=== PATIENT | female | born 1940 | race Caucasian/White ===

== ENCOUNTER 2017-10-12 18:31 | Inpatient (IN) | payer OTHER ==
--- OUTSIDE RECORDS SUMMARY | 2017-10-12 18:34 | XMS REPORT | Clinical Summary ---
:1940 Author Organization [facility] Address [address] [place] [address] Care Team Providers Name Role Phone Vladimir Parikh MD Primary Care Provider Allergies Active Allergy Reactions Severity Noted Date Comments Inrnmqq-Gaf-Keu Reductase Inhibitors High 04/08/2017 Extreme joint pain Current Medications Prescription Sig. Disp. Refills Start Date End Date Status verapamil sustained Take 180 mg by Active release (CALAN-SR) 180 MG mouth 3 (three) SR tablet times a day. ezetimibe (ZETIA) 10 mg Take 10 mg by mouth Active tablet daily. metFORMIN (GLUCOPHAGE) Take 500 mg by Active 500 mg tablet mouth 2 (two) times a day with meals. rosuvastatin (CRESTOR) 10 Take 10 mg by mouth Active MG tablet daily. donepezil (ARICEPT) 10 MG Take 10 mg by mouth Active tablet nightly. triamcinolone-dimethicone Apply topically. Active 0.1-5 % kit,ointment and cream albuterol (PROAIR Inhale 2 puffs Active HFA,PROVENTIL every 6 (six) hours HFA,VENTOLIN HFA) 90 as needed for mcg/actuation inhaler wheezing. benzonatate (TESSALON) Take 200 mg by Active 100 MG capsule mouth 3 (three) times a day as needed for cough. aspirin (ECOTRIN) 81 MG Take 81 mg by mouth Active enteric coated tablet daily. DOCUSATE CALCIUM ORAL Take by mouth. Active Active Problems Problem Noted Date Psoriasis 04/11/2017 SSS (sick sinus syndrome) 04/11/2017 Hyperlipidemia 04/11/2017 Hypertension 04/11/2017 Arthritis 04/08/2017 Sacroiliac dysfunction 04/08/2017 Encounters Date Type Specialty Care Team Description 04/08/2017 Hospital Encounter Radiology Bernie Hanley MD Sacroiliac dysfunction 04/08/2017 Hospital Encounter Radiology Bernie Hanley MD Arthritis 04/08/2017 Hospital Encounter Radiology Bernie Hanley MD Arthritis 04/08/2017 Office Visit Rheumatology Bernie Hanley MD Arthritis (Primary Dx); Sacroiliac dysfunction; Psoriasis after 10/11/2016 Family History Medical History Relation Name Comments ALS Brother Heart disease Father Osteoarthritis Father Alzheimer's disease Mother Heart disease Sister Hypertension Sister Relation Name Status Comments Brother Father aortic valve replacement Mother urosepsis. Pacemaker, strokes, heart disease. Sister Alive Son Don Melton Alive Common variable immunodeficiency Social History Tobacco Use Types Packs/Day Years Used Date Former Smoker Cigarettes Smokeless Tobacco: Never Used Comments: 2-3 years occasionally in college Alcohol Use Drinks/Week oz/Week Comments Yes 1 Standard drinks or equivalent 0.6 rarely Sex Assigned at Date Recorded Not on file Last Filed Vital Signs Vital Sign Reading Time Taken Blood Pressure 129/90 04/08/2017 10:05 AM [employer] Pulse 64 04/08/2017 10:05 AM [employer] Temperature - - Respiratory Rate - - Oxygen Saturation - - Inhaled Oxygen Concentration - - Weight 97.5 kg (215 lb) 04/08/2017 10:05 AM [employer] Height 167 cm (5' 5.75") 04/08/2017 10:05 AM [employer]ATE [employer]NALY[employer] Body Mass Index 34.97 04/08/2017 10:05 AM [employer]IATE [employer]NALYST Plan of Treatment Health Maintenance Due Date Last Done Comments SHINGRIX VACCINE (#1) 08/29/1991 ZOSTER VACCINE 2001 PNEUMOCOCCAL POLYSACCHARIDE VACCINE AGE 65 AND OVER 2006 PNEUMOCOCCAL-13 2006 INFLUENZA VACCINE 10/06/2017 Procedures Procedure Name Priority Date/Time Associated Diagnosis Comments XR KNEE 1 OR 2 VW Routine 04/08/2017 12:04 Arthritis Results for this LEFT PM [employer] procedure are in the results section. XR KNEE AP STANDING Routine 04/08/2017 12:04 Arthritis Results for this BILATERAL PM [employer] procedure are in the results section. XR SACROILIAC JOINTS Routine 04/08/2017 12:04 Sacroiliac Results for this 3+ VW PM [employer] dysfunction procedure are in the results section. after 10/11/2016 Results XR Knee 1 Or 2 Vw Left (04/08/2017 12:04 PM) Narrative Performed At EXAMINATION:XR KNEE 1 OR 2 VW LEFT [facility] CLINICAL HISTORY:M19.90 Unspecified osteoarthritisunspecified site, Knee pain.Will not extend.MLI COMPARISON:None. IMPRESSION: Mild medial greater than lateral compartment narrowing. Small suprapatellar osteophyte. Possible small joint effusion. No fracture or dislocation. Normal bone mineralization. Gastric calcifications in the popliteal fossa. [facility]-[id number] Procedure Note Interface, Radiology Results Incoming - 04/08/2017 1:15 PM [employer]ATE FIN[employer]CIAL ANALYST EXAMINATION: XR KNEE 1 OR 2 VW LEFT CLINICAL HISTORY: M19.90 Unspecified osteoarthritis unspecified site, Knee pain. Will not extend. MLI COMPARISON: None. IMPRESSION: Mild medial greater than lateral compartment narrowing. Small suprapatellar osteophyte. Possible small joint effusion. No fracture or dislocation. Normal bone mineralization. Gastric calcifications in the popliteal fossa. [facility]-[id number] Performing Organization Address [facility] Phone Number [facility] [address] [place] [address] XR Knee Ap Standing Bilateral (04/08/2017 12:04 PM) Narrative Performed At XR KNEE AP STANDING BILATERAL [facility] CLINICAL INDICATION:M19.90 Unspecified osteoarthritisunspecified site, knee pain COMPARISON:None. IMPRESSION: Standing views of the knees demonstrate no significant varus or valgus deformity. Joint spaces are maintained. There are no significant arthritic findings in either knee. There is relative elevation of the medial left tibial plateau from the right by 2 mm. Soft tissues are unremarkable. Thank you for allowing us to participate in the care of your patient [id number] Procedure Note Interface, Radiology Results Incoming - 04/08/2017 1:59 PM ASSOCIATE FIN[employer]CIAL ANALYST XR KNEE AP STANDING BILATERAL CLINICAL INDICATION: M19.90 Unspecified osteoarthritis unspecified site, knee pain COMPARISON: None. IMPRESSION: Standing views of the knees demonstrate no significant varus or valgus deformity. Joint spaces are maintained. There are no significant arthritic findings in either knee. There is relative elevation of the medial left tibial plateau from the right by 2 mm. Soft tissues are unremarkable. Thank you for allowing us to participate in the care of your patient [id number] Performing Organization Address [facility]/Zipcode Phone Number [facility] [address] [place] [address] XR Sacroiliac Joints 3+ Vw (04/08/2017 12:04 PM) Narrative Performed At EXAMINATION:XR SACROILIAC JOINTS 3VW [facility] 3 views CLINICAL HISTORY:M53.3 Sacrococcygeal disordersnot elsewhere classified, bilataral SI pain.history of psoriasis COMPARISON:None. FINDINGS: 1. There are mild degenerative changes in the sacroiliac bilaterally. There is no joint space erosion or joint space fusion. 2.There is no gross evidence of fracture although the possibility of sacral fracture cannot be excluded on the basis of this examination. 3.There is marked disc space narrowing, spondylosis and degenerative change in the discs at L4-5 and L5-S1. 4.There are surgical clips projected in the midline pelvis. 5.There is what appears to be a port for a lap band projected over the lower abdomen on the right posterior oblique view. IMPRESSION: Degenerative changes in the sacroiliac joints and lower lumbar spine. [id number] Procedure Note Interface, Radiology Results Incoming - 04/08/2017 12:31 PM ASSOCIATE FINANCIAL ANALYST EXAMINATION: XR SACROILIAC JOINTS 3 VW 3 views CLINICAL HISTORY: M53.3 Sacrococcygeal disorders not elsewhere classified, bilataral SI pain. history of psoriasis COMPARISON: None. FINDINGS: 1. There are mild degenerative changes in the sacroiliac bilaterally. There is no joint space erosion or joint space fusion. 2. There is no gross evidence of fracture although the possibility of sacral fracture cannot be excluded on the basis of this examination. 3. There is marked disc space narrowing, spondylosis and degenerative change in the discs at L4-5 and L5-S1. 4. There are surgical clips projected in the midline pelvis. 5. There is what appears to be a port for a lap band projected over the lower abdomen on the right posterior oblique view. IMPRESSION: Degenerative changes in the sacroiliac joints and lower lumbar spine. [id number] Performing Organization Address City/State/Zipcode Phone Number [facility] [address] [place] [address] after 10/11/2016 Insurance Payer Benefit Plan / Group Subscriber ID Type Phone Address [employer] MED[employer]ARE [employer] MEDICARE PPO/PFFS/[facility] xxxxxxxxx PPO Home: [facility] [phone] [place] [id number]
[2017-10-12 19:08] LABS: Absolute Lymphocytes (CBC) 2.4 K/uL (0.7-4.9); Absolute Monocytes 0.7 K/uL (0.1-1.3); Basophils % 1.2 % (0-1.3); Eosinophils % 2.4 % (0-4.4); MCV 93.5 fL (80-100); MPV 10.3 fL (7.6-11.3); Monocytes % 10.5 % (3.3-12.3); RBC Red Blood Cell Count 4.38 M/uL (3.86-4.86)
--- NOTE | 2017-10-12 19:26 | RAD REPORT ---
EXAM DESCRIPTION: [facility] Single View10/12/2017 7:17 pm CLINICAL HISTORY: Shortness of breath COMPARISON: None FINDINGS: The lungs appear clear of acute infiltrate. The heart is borderline enlarged. Pacemaker l mily are present. One of the leads is disconnected from the battery pack IMPRESSION: No acute abnormalities displayed
[2017-10-12 19:27] LABS: Albumin 3.6 g/dL (3.4-5.0); Bilirubin Direct 0.1 mg/dL (0-0.2); Bilirubin Total 0.3 mg/dL (0.2-1.0); Magnesium 2.5 mg/dL (1.8-2.4); Potassium 3.9 mmol/L (3.5-5.1)
--- NOTE | 2017-10-12 19:42 | RAD REPORT ---
EXAM DESCRIPTION: CT - Head Brain Wo Cont - 10/12/2017 7:10 pm CLINICAL HISTORY: Left-sided numbness/weakness COMPARISON: None. TECHNIQUE: Computed axial tomography of the head was obtained. IV contrast was not requested. All CT scans are performed using dose optimization technique as appropriate and may include automated exposure control or mA/KV adjustment according to patient size. FINDINGS: An intracranial bleed is not seen . The ventricles are normal in caliber. No extra-axial fluid collection is noted. A 5 millimeter low-density areas present within the right internal capsule. Fluid within the sinuses/ mastoids is not seen. IMPRESSION: A 5 millimeter low-density area within the right internal capsule consistent with an inf arct. The age is indeterminate. MRI is recommended
--- NOTE | 2017-10-12 20:18 | EDPHYS ---
Physician Documentation [facility] Name: Felicita Melton Age: 77 yrs Sex: Female : 1940 Arrival Date: 10/12/2017 Time: 18:35 Bed 18 Private MD: Vladimir Parikh ED Physician Osmany Palomino HPI: 10/12 20:05 This 77 yrs old Female presents to ER via Ambulatory with complaints of jr8 Trouble Walking, Slurred Speech, Shoulder Pain. 20:05 Onset: The symptoms/episode began/occurred gradually, 2 week(s) ago, and became worse jr8 and became persistent. Context: occurred at home. Associated signs and symptoms: Pertinent positives: odd neurologic movements. Patient's baseline: Neuro: alert and fully oriented, Motor: no deficits, Ambulation: walks without assistance, Speech: normal. The patient has not experienced similar symptoms in the past. The patient has not recently seen a physician. Denies any change in medications recently. Historical: - Allergies: 18:55 Rgwgchl-Kti-Vub Reductase Inhibitors; aj1 - Home Meds: 18:55 metformin 500 mg Oral tab 1 tab 2 times per day [Active]; etodolac 400 mg Oral tab 1 aj1 tab 2 times per day [Active]; ezetimibe oral 10 mg oral once daily [Active]; verapamil 180 mg Oral TbER 1 tab three times daily [Active]; memantine 5 mg oral tab 2 tabs 2 times per day [Active]; - PMHx: 18:55 Dementia; sick sinus syndrome; Diabetes - NIDDM; aj1 - PSHx: 18:55 Mastectomy, Left; shoulder surgery; Cholecystectomy; cataract surgery; Hysterectomy; aj1 vaginal reconstruction; - Immunization history:: Flu vaccine status is unknown. - Social history:: Smoking status: Patient/guardian denies using tobacco. - Ebola Screening: : Patient denies travel to an Ebola-affected area in the 21 days before illness onset. ROS: 20:05 Eyes: Negative for injury, pain, redness, and discharge, ENT: Negative for injury, jr8 pain, and discharge, Neck: Negative for injury, pain, and swelling, Cardiovascular: Negative for chest pain, palpitations, and edema, Respiratory: Negative for shortness of breath, cough, wheezing, and pleuritic chest pain, Abdomen/GI: Negative for abdominal pain, nausea, vomiting, diarrhea, and constipation, Back: Negative for injury and pain, MS/Extremity: Negative for injury and deformity, Skin: Negative for injury, rash, and discoloration. 20:05 Neuro: Positive for gait disturbance, abnormal movements to left side of body and face. Exam: 20:05 Head/Face: Normocephalic, atraumatic. Eyes: Pupils equal round and reactive to light, jr8 extra-ocular motions intact. Lids and lashes normal. Conjunctiva and sclera are non-icteric and not injected. Cornea within normal limits. Periorbital areas with no swelling, redness, or edema. ENT: Nares patent. No nasal discharge, no septal abnormalities noted. Tympanic membranes are normal and external auditory canals are clear. Oropharynx with no redness, swelling, or masses, exudates, or evidence of obstruction, uvula midline. Mucous membranes moist. Neck: Trachea midline, no thyromegaly or masses palpated, and no cervical lymphadenopathy. Supple, full range of motion without nuchal rigidity, or vertebral point tenderness. No Meningismus. Chest/axilla: Normal chest wall appearance and motion. Nontender with no deformity. No lesions are appreciated. Cardiovascular: Regular rate and rhythm with a normal S1 and S2. No gallops, murmurs, or rubs. Normal PMI, no JVD. No pulse deficits. Respiratory: Lungs have equal breath sounds bilaterally, clear to auscultation and percussion. No rales, rhonchi or wheezes noted. No increased work of breathing, no retractions or nasal flaring. Abdomen/GI: Soft, non-tender, with normal bowel sounds. No distension or tympany. No guarding or rebound. No evidence of tenderness throughout. Back: No spinal tenderness. No costovertebral tenderness. Full range of motion. Skin: Warm, dry with normal turgor. Normal color with no rashes, no lesions, and no evidence of cellulitis. MS/ Extremity: Pulses equal, no cyanosis. Neurovascular intact. Full, normal range of motion. 20:05 Neuro: Orientation: to person, place, time \T\ situation. Mentation: is normal, Memory: is normal, Cranial nerves: CN I not tested, CN II- XII are normal as tested, visual huynh are intact. extraocular movements are intact, Facial palsy and sensory deficits are absent. Speech is clear and appropriate. Tongue strength is normal, Cerebellar function: normal finger to nose testing, heel to steven testing is normal, Motor: moves all fours, strength is 5/5 in all extremities, Sensation: no obvious gross deficits, Gait: is steady, seizure activity, is not displayed by the patient, Abnormal movements: hemichorea like motion noted to left face and left side of body . Vital Signs: 18:58 Pulse 80; Resp 18; Temp 98.2(O); Pulse Ox 98% on R/A; Pain 7/10; aj1 19:50 BP 160 / 86; Pulse 77; Resp 18; Pulse Ox 97% on R/A; aj1 20:50 BP 157 / 85; Pulse 83; Resp 20; Pulse Ox 97% ; aj1 21:40 BP 179 / 67; Pulse 82; Resp 18; Pulse Ox 98% ; aj1 NIH Stroke Scale Scores: 18:59 NIHSS Score: 2 aj1 MDM: 18:54 Patient medically screened. [facility] 20:05 Data reviewed: vital signs, nurses notes, lab test result(s), EKG, radiologic studies, [facility] CT scan, plain films. Data interpreted: Pulse oximetry: on room air is 97 %. Interpretation: normal. Counseling: I had a detailed discussion with the patient and/or guardian regarding: the historical points, exam findings, and any diagnostic results supporting the discharge/admit diagnosis, lab results, radiology results, the need for further work-up and treatment in the hospital. ED course: Dr. Mercado consulted and will see patient. Dr. Portillo to admit patient . 10/12 18:55 Order name: Basic Metabolic Panel [facility] 10/12 18:55 Order name: CBC with Diff 10/12 18:55 Order name: CPK 10/12 18:55 Order name: LFT's 10/12 18:55 Order name: Magnesium 10/12 18:55 Order name: NT PRO-BNP 10/12 18:55 Order name: PT-INR 10/12 19:10 Order name: CBC with Automated Diff; Complete Time: 19:14 EDMS 10/12 19:27 Order name: Basic Metabolic Panel; Complete Time: 19:46 EDMS 10/12 19:27 Order name: Liver (Hepatic) Function; Complete Time: 19:46 [facility] 10/12 19:27 Order name: Creatine Phosphokinase; Complete Time: 19:46 [facility] 10/12 19:27 Order name: NT PRO-BNP; Complete Time: 19:46 [facility] 10/12 19:27 Order name: Magnesium; Complete Time: 19:46 [facility] 10/12 19:53 Order name: Urine Dipstick--Ancillary (enter results); Complete Time: 21:28 [facility] 10/12 18:55 Order name: XRAY Chest (1 view) [facility] 10/12 18:55 Order name: EKG; Complete Time: 18:56 [facility] 10/12 18:55 Order name: Cardiac monitoring; Complete Time: 19:20 [facility] 10/12 18:55 Order name: EKG - Nurse/Tech; Complete Time: 19:20 [facility] 10/12 18:55 Order name: IV Saline Lock; Complete Time: 19:04 [facility] 10/12 18:55 Order name: Labs collected and sent; Complete Time: 19:04 [facility] 10/12 18:55 Order name: O2 Per Protocol; Complete Time: 19:20 [facility] 10/12 18:55 Order name: O2 Sat Monitoring; Complete Time: 19:20 [facility] 10/12 18:55 Order name: Urine Dipstick-Ancillary (obtain specimen); Complete Time: 19:49 [facility] 10/12 18:55 Order name: CT Head Brain wo Cont [facility] 10/12 19:27 Order name: RAD; Complete Time: 19:46 [facility] 10/12 19:42 Order name: CT; Complete Time: 19:46 [facility] 10/12 20:04 Order name: Protime (+INR); Complete Time: 20:18 [facility] 10/12 20:57 Order name: CONS Physician Consult EDAR Administered Medications: 20:37 Drug: HALdol 0.5 mg Route: IVP; Site: right antecubital; aj1 21:42 Follow up: Response: No adverse reaction aj1 Disposition: 10/13 07:07 Co-signature as Attending Physician, Osmany Palomino MD. rn Disposition: 10/12/17 20:17 Hospitalization ordered by Pastor Guadalupe for Inpatient Admission. 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 - Bed requested for Telemetry/MedSurg (Inpatient). - Status is Inpatient Admission. aj1 - Condition is Stable. - Problem is new. - Symptoms are unchanged. UTI on Admission? No NIH Stroke Scale - NIH Stroke Score Date: 10/12/2017 Time: 18:59 Total Score = 2 1a. Level of Consciousness (LOC) - 0(Alert) 1b. Level of Consciousness (LOC) (Year \T\ Age) - 0(Both) 1c. LOC Commands (Open \T\ Closes Eyes/[employer] Front [employer]k Attendant) - 0(Both) 2. Best Gaze (Lateral Gaze Paresis) - 0(Normal) 3. Visual Field Loss - 0(No visual loss) 4. Facial Palsy - 0(Normal) 5a. Left Arm: Motor (10-second hold) - 0(No drift) 5b. Right Arm: Motor (10-second hold) - 0(No drift) 6a. Left Leg: Motor (5-second hold - always test supine) - 0(No drift) 6b. Right Leg: Motor (5-second hold - always test supine) - 0(No drift) 7. Limb Ataxia (finger/nose \T\ heel/steven - test with eyes open) - 0(Absent) 8. Sensory Loss (pinprick arms/legs/face) - 0(Normal) 9. Best Language: Aphasia (description/naming/reading) - 1(Mild to moderate aphasia) 10. Dysarthria (speech clarity - read or repeat words) - 1(Mild to Moderate) 11. Extinction and Inattention (visual/tactile/auditory/spatial/personal) - 0(No abnormality) Initials: aj Signatures: Dispatcher [employer] Elías Iniguez rg2 Bernie Wyatt RN RN aj1 Osmany Palomino MD MD rn Roszak, Josh, PA PA jr8 Corrections: (The following items were deleted from the chart) 10/12 20:57 20:17 Hospitalization Ordered by Pastor Guadalupe MD for Inpatient Admission. rg2 Preliminary diagnosis is Other chorea. Bed requested for Telemetry/MedSurg (Inpatient). Status is Inpatient Admission. Condition is Stable. Problem is new. Symptoms are unchanged. UTI on Admission? No. jr8 21:43 20:57 10/12/2017 20:17 Hospitalization Ordered by Pastor Guadalupe MD for aj1 Inpatient Admission. 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 Bed requested for Telemetry/MedSurg (Inpatient). Status is Inpatient Admission. Condition is Stable. Problem is new. Symptoms are unchanged. UTI on Admission? No. rg2
--- NOTE | 2017-10-12 20:18 | ER ---
Nurse's Notes [facility] Name: Felicita Melton Age: 77 yrs Sex: Female : 1940 Arrival Date: 10/12/2017 Time: 18:35 Bed 18 Private MD: Vladimir Parikh Diagnosis: Other chorea Presentation: 10/12 18:39 Presenting complaint: Patient states: L sided weakness that has been getting ss progressively worse over the past week, even more worse today with slurred speech and unsteady gait. Transition of care: patient was not received from another setting of care. An acute neurological deficit is present. Pre-hospital glucose is not applicable to this patient. Onset of symptoms is unknown. Risk Assessment: Do you want to hurt yourself or someone else? Patient reports no desire to harm self or others. Initial Sepsis Screen:. Care prior to arrival: None. 18:39 Method Of Arrival: Ambulatory ss 18:39 Acuity: SANDEE 3 ss 18:52 Initial Sepsis Screen: Does the patient meet any 2 criteria? No. Patient's initial aj1 sepsis screen is negative. Does the patient have a suspected source of infection? No. Patient's initial sepsis screen is negative. Triage Assessment: 18:55 The onset of the patients symptoms was October 05, 2017 at 11:00. General: Appears in no aj1 apparent distress. comfortable, Behavior is calm, cooperative, appropriate for age. Pain: Complains of pain in anterior aspect of left shoulder and posterior aspect of left shoulder. Neuro: Reports unsteady gait. Stroke Activation: Symptom onset > 6 hours Physician: Stroke Attending; Name: ; Notified At: ; Arrived At: Physician: Chief Stroke Resident; Name: ; Notified At: ; Arrived At: Physician: Stroke Resident; Name: ; Notified At: ; Arrived At: Physician: ED Attending; Name: ; Notified At: ; Arrived At: Physician: ED Resident; Name: ; Notified At: ; Arrived At: Historical: - Allergies: 18:55 Bbjjkcf-Vqw-Zdv Reductase Inhibitors; aj1 - Home Meds: 18:55 metformin 500 mg Oral tab 1 tab 2 times per day [Active]; etodolac 400 mg Oral tab 1 aj1 tab 2 times per day [Active]; ezetimibe oral 10 mg oral once daily [Active]; verapamil 180 mg Oral TbER 1 tab three times daily [Active]; memantine 5 mg oral tab 2 tabs 2 times per day [Active]; - PMHx: 18:55 Dementia; sick sinus syndrome; Diabetes - NIDDM; aj1 - PSHx: 18:55 Mastectomy, Left; shoulder surgery; Cholecystectomy; cataract surgery; Hysterectomy; aj1 vaginal reconstruction; - Immunization history:: Flu vaccine status is unknown. - Social history:: Smoking status: Patient/guardian denies using tobacco. - Ebola Screening: : Patient denies travel to an Ebola-affected area in the 21 days before illness onset. Screenin:59 Abuse screen: Denies threats or abuse. Denies injuries from another. Nutritional aj1 screening: No deficits noted. Tuberculosis screening: No symptoms or risk factors identified. 21:40 Fall Risk No fall in past 12 months (0 pts). Secondary diagnosis (15 points) dementia, aj1 IV access (20 points). Ambulatory Aid- None/Bed Rest/Nurse Assist (0 pts). Gait- Impaired (20 pts.). Mental Status- Overestimates/Forgets Limitations (15 pts.). Total Brock Fall Scale indicates High Risk Score (45 or more points). Fall prevention measures have been instituted. Family Present and informed to notify staff if the need to leave the bedside As available patient and family educated on Fall Prevention Program and Strategies. Assessment: 18:39 General: DONNY Wade at bedside. 18:59 T-PA (Activase) Screening: Contraindications: Patient reports onset of signs and aj1 symptoms of stroke greater than 6 hours ago: Yes. Pain: Complains of pain in posterior aspect of left shoulder and anterior aspect of left shoulder Pain does not radiate. Pain currently is 7 out of 10 on a pain scale. Neuro: Level of Consciousness is awake, alert, obeys commands, Oriented to person, place, time, situation, Co Founder are equal bilaterally Moves all extremities. Gait is steady, Speech is slurred, Facial symmetry appears normal, Pupils are PERRLA, Intact Denies weakness blurred vision headache. Cardiovascular: Patient's skin is warm and dry. Respiratory: Airway is patent Respiratory effort is even, unlabored, Respiratory pattern is regular, symmetrical. GI: No signs and/or symptoms were reported involving the gastrointestinal system. : No signs and/or symptoms were reported regarding the genitourinary system. EENT: No signs and/or symptoms were reported regarding the EENT system. Derm: No signs and/or symptoms reported regarding the dermatologic system. Skin is pink, warm \T\ dry. normal. Musculoskeletal: Patient is having involuntary movements of the left side. 19:41 Reassessment: Patient appears in no apparent distress at this time. No changes from aj1 previously documented assessment. Patient and/or family updated on plan of care and expected duration. Pain level reassessed. Patient is alert, oriented x 3, equal unlabored respirations, skin warm/dry/pink. 19:49 Reassessment: Patient appears in no apparent distress at this time. No changes from aj1 previously documented assessment. Patient and/or family updated on plan of care and expected duration. Pain level reassessed. Patient is alert, oriented x 3, equal unlabored respirations, skin warm/dry/pink. 19:50 Patient has been NPO before screening. The patient is alert, and able to follow aj1 commands. The patient does not exhibit slurred or garbled speech. Patient's speech is only slurred when she is having facial spasms The patient is not exhibiting difficulty speaking. The patient is exhibiting difficulty understanding words. The patient is able to swallow own secretions with no drooling or need for suction. Patient tolerated one teaspoon of water. No drooling, immediate coughing, gurgling, or clearing of the throat was noted. The patient tolerated 90mL of water. No drooling, immediate coughing, gurgling, or clearing of the throat was noted. The patient passed the bedside swallow screening. Oral medications may be given as ordered. Contact Physician for further diet orders. Provider notified of bedside swallow screening results: Sheldon HINES. 20:50 Reassessment: Patient appears in no apparent distress at this time. No changes from aj1 previously documented assessment. Patient and/or family updated on plan of care and expected duration. Pain level reassessed. Patient is alert, oriented x 3, equal unlabored respirations, skin warm/dry/pink. Vital Signs: 18:58 Pulse 80; Resp 18; Temp 98.2(O); Pulse Ox 98% on R/A; Pain 7/10; aj1 19:50 BP 160 / 86; Pulse 77; Resp 18; Pulse Ox 97% on R/A; aj1 20:50 BP 157 / 85; Pulse 83; Resp 20; Pulse Ox 97% ; aj1 21:40 BP 179 / 67; Pulse 82; Resp 18; Pulse Ox 98% ; aj1 NIH Stroke Scale Scores: 18:59 NIHSS Score: 2 aj1 ED Course: 18:35 Patient arrived in ED. rg4 18:36 Vladimir Parikh MD is Private Physician. rg4 18:41 Triage completed. ss 18:52 Bernie Wyatt RN is Primary Nurse. aj1 18:54 Sheldon Kumar PA is PHCP. jr8 18:54 Osmany Palomino MD is Attending Physician. jr8 18:58 Arm band placed on Patient placed in an exam room. aj1 18:59 Patient has correct armband on for positive identification. Bed in low position. Call aj1 light in reach. Side rails up X 1. lunchroom monitor on. Pulse ox on. NIBP on. 18:59 No provider procedures requiring assistance completed. aj1 19:[address] via stretcher. 19:03 Initial lab(s) drawn, by me, sent to lab. Inserted saline lock: 20 gauge in right dh3 forearm, using aseptic technique. Blood collected. 19:15 X-ray completed. Patient tolerated procedure well. Patient moved back from radiology. bb2 20:17 Pastor Guadalupe MD is Hospitalizing Provider. jr8 21:40 Patient admitted, IV remains in place. aj1 Administered Medications: 20:37 Drug: HALdol 0.5 mg Route: IVP; Site: right antecubital; aj1 21:42 Follow up: Response: No adverse reaction aj1 Outcome: 20:17 Decision to Hospitalize by Provider. jr8 21:40 Admitted to Tele accompanied by tech, via wheelchair. aj1 21:40 Condition: good 21:40 Discharge instructions given to patient, Instructed on the need for admit, Demonstrated understanding of instructions. 21:43 Patient left the ED. aj1 NIH Stroke Scale - NIH Stroke Score Date: 10/12/2017 Time: 18:59 Total Score = 2 1a. Level of Consciousness (LOC) - 0(Alert) 1b. Level of Consciousness (LOC) (Year \T\ Age) - 0(Both) 1c. LOC Commands (Open \T\ Closes Eyes/Zoning Assistant) - 0(Both) 2. Best Gaze (Lateral Gaze Paresis) - 0(Normal) 3. Visual Field Loss - 0(No visual loss) 4. Facial Palsy - 0(Normal) 5a. Left Arm: Motor (10-second hold) - 0(No drift) 5b. Right Arm: Motor (10-second hold) - 0(No drift) 6a. Left Leg: Motor (5-second hold - always test supine) - 0(No drift) 6b. Right Leg: Motor (5-second hold - always test supine) - 0(No drift) 7. Limb Ataxia (finger/nose \T\ heel/steven - test with eyes open) - 0(Absent) 8. Sensory Loss (pinprick arms/legs/face) - 0(Normal) 9. Best Language: Aphasia (description/naming/reading) - 1(Mild to moderate aphasia) 10. Dysarthria (speech clarity - read or repeat words) - 1(Mild to Moderate) 11. Extinction and Inattention (visual/tactile/auditory/spatial/personal) - 0(No abnormality) Initials: aj1 Signatures: Bernie Wyatt RN RN aj1 Marija Gage, RN RN ss Sheldon Kumar PA PA jr8 Barbara Cruz Rubi rg4 Melissa Elmore 3 Prisca Aguirre2 Corrections: (The following items were deleted from the chart) 21:41 21:40 Fall Risk None identified. aj1 aj1
[2017-10-12] MEDS ORDERED: HALOPERIDOL LACT 5 MG/ML INJ ONE (20:36)
[2017-10-12 21:05] LABS: Urine Blood NEGATIVE (NEG); Urine Glucose NEGATIVE (NEG); Urine Protein NEGATIVE (NEG); Urine pH 5.5 (5.0-7.0)
--- NOTE | 2017-10-12 21:18 | P.HP ---
Certification for Inpatient Patient admitted to: Inpatient With expected LOS: >2 Midnights Practitioner: I am a practitioner with admitting privileges, knowledge of patient current condition, hospital course, and medical plan of care. Services: Services provided to patient in accordance with Admission requirements found in Title 42 Section 412.3 of the Code of Federal Regulations Patient History Date of Service: 10/12/17 Reason for admission: cele chorea History of Present Illness: Ms Melton is a 77-year-old woman, with history of dementia, diabetes mellitus types 2, sick sinus syndrome status post pacemaker placement, who start about 3 weeks ago with left and involuntary movement. Over the time, the left side of the face and left leg, also start having involuntary movement. There is no history of starting or discontinue any medication. CT of the head, shows a 5 millimeter low-density area within the right internal capsule consistent with an infarct, of undetermined age. The patient has been follow-up by Dr. Mercado due to history of dementia. Allergies acetaminophen [From Percocet] Allergy (Verified 08/02/14 10:49) Rash aspirin [From Percodan] Allergy (Verified 08/02/14 10:49) Rash morphine Allergy (Verified 08/02/14 11:12) Itching oxycodone HCl [From Percocet] Allergy (Verified 08/02/14 10:49) Rash oxycodone terephthalate [From Percodan] Allergy (Verified 08/02/14 10:49) Rash Sulfa (Sulfonamide Antibiotics) Allergy (Verified 08/02/14 10:49) Rash Satrcmz-Tyo-Tfe Reductase Inhibitor Adverse Reaction (Verified 08/09/14 07:11) Anaphylaxis Home medications list reviewed: Yes Home Medications: Losartan Potassium [Cozaar*] 50 mg PO DAILY WITH BREAKFAST 08/02/14 Verapamil HCl [Verapamil ER] 120 mg PO TID 08/02/14 - Past Medical/Surgical History -: dementia -: diabetes mellitus -: sick sinus syndrome -: pacemaker placement -: abdominal plastic surgery -: Hysterectomy -: Cholecystectomy - Family History Family History: Reviewed- Non-Contributory - Social History Smoking Status: Never smoker Alcohol use: No CD- Drugs: No Place of Residence: Home Review of Systems 10-point ROS is otherwise unremarkable Physical Examination - Physical Exam General: Alert, In no apparent distress HEENT: Atraumatic, PERRLA, Mucous membr. moist/pink, EOMI, Sclerae nonicteric Neck: Supple, 2+ carotid pulse no bruit, No LAD, Without JVD or thyroid abnormality Respiratory: Clear to auscultation bilaterally, Normal air movement Cardiovascular: Regular rate/rhythm, Normal S1 S2 Gastrointestinal: Normal bowel sounds, No tenderness Musculoskeletal: No tenderness Integumentary: No rashes Neurological: Normal speech, Normal tone, Normal affect, Other (Involuntary movement on her left side of the face, arm and leg.) Lymphatics: No axilla or inguinal lymphadenopathy - Studies Laboratory Data (last 24 hrs) 10/12/17 18:59: PT 11.8, INR 1.00 10/12/17 18:59: WBC 6.3, Hgb 14.0, Hct 41.0, Plt Count 235 10/12/17 18:59: Sodium 142, Potassium 3.9, BUN 18, Creatinine 0.90, Glucose 115 H, Magnesium 2.5 H, Total Bilirubin 0.3, AST 28, ALT 35, Alkaline Phosphatase 94 Assessment and Plan - Problems (Diagnosis) (1) Chorea Current Visit: Yes Status: Acute (2) Diabetes mellitus Current Visit: Yes Status: Acute Qualifiers: Diabetes mellitus type: type 2 Diabetes mellitus oil heaterman insulin use: with prison use Diabetes mellitus complication status: with unspecified complications Qualified Code(s): E11.8 - Type 2 diabetes mellitus with unspecified complications; Z79.4 - terminal press operator (current) use of insulin (3) Dementia Current Visit: Yes Status: Acute Qualifiers: Dementia type: unspecified type Dementia behavioral disturbance: without behavioral disturbance Qualified Code(s): F03.90 - Unspecified dementia without behavioral disturbance - Plan The patient will be admitted to the hospital due to progressive Chorea. Dr Mercado was consulted, he recommended to start low dose of Haldol at bedtime. Unfortunately, the patient is unable to have a brain MRI due to pacemaker placement. He will evaluate the patient in a.m. - Advance Directives Does patient have a Living Will: No Does patient have a Durable POA for Healthcare: No - Code Status/Comfort Care Code Status Assessed: Yes Code Status: Full Code
[2017-10-12] MEDS ORDERED: ACETAMINOPHEN 500 MG TAB PO PRN (21:35)
[2017-10-12] MEDS: INSULIN -REGULAR HUMAN 50 UNIT/0.5 ML ML SQ SCH (21:35)
[2017-10-12] MEDS ORDERED: ONDANSETRON 4 MG/2 ML VIAL IV PRN (21:35)
[2017-10-12] MEDS ORDERED: HALOPERIDOL 2 MG TAB PO SCH (21:35)
[2017-10-12] MEDS: NA CHLORIDE 0.9% 1,000 ML IV SCH (23:02)
[2017-10-12 23:56] VITALS: BMI 30.7
[2017-10-13 05:22] LABS: Absolute Monocytes 0.8 K/uL (0.1-1.3); Absolute Neutrophil 3.1 K/uL (1.8-8.0); Basophils % 1.1 % (0-1.3); Eosinophils % 2.7 % (0-4.4); Hematocrit 37.8 % (36.0-45.0); Lymphocytes % 32.4 % (15.3-44.8); MCH 32.6 pg (27.0-35.0); MCV 94.3 fL (80-100); MPV 10.5 fL (7.6-11.3); Monocytes % 12.9 % (3.3-12.3); RBC Red Blood Cell Count 4.01 M/uL (3.86-4.86)
[2017-10-13 05:48] LABS: Potassium 3.9 mmol/L (3.5-5.1)
[2017-10-13] MEDS ORDERED: POTASSIUM 25 MEQ EFFERV TAB PO ONE (06:26)
[2017-10-13] MEDS: NA CHLORIDE 0.9% 1,000 ML IV SCH ×2 (06:43→17:37)
[2017-10-13] MEDS: INSULIN -REGULAR HUMAN 50 UNIT/0.5 ML ML SQ SCH ×4 (07:30→21:00)
[2017-10-13] MEDS ORDERED: ASPIRIN 81 MG CHEWABLE TABLET PO SCH (09:00)
[2017-10-13] MEDS: ENOXAPARIN 40 MG/0.4 ML SQ SCH (09:57)
--- NOTE | 2017-10-13 10:00 | RAD REPORT ---
EXAM DESCRIPTION: CT - C Spine Wo Con - 10/13/2017 9:02 am CLINICAL HISTORY: Neck pain, left arm numbness COMPARISON: None. TECHNIQUE: Axial 2 mm thick images of the cervical spine were obtained with sagittal and coronal rec onstruction images generated and reviewed. All CT scans are performed using dose optimization technique as appropriate and may include automated exposure control or mA/KV adjustment according to patient size. FINDINGS: Cervical bodies are normal in height. No acute fracture changes identifiable. Slight anter olisthesis of C3 on C4. There is a mild retrolisthesis of C5 and C6 relative to the C4 and C7 bodies. Significant C5-6 and C6-7 disc space narrowing and endplate spurring changes are present. No patholo gic bone process. C7-T1 disc space narrowing also present. No paraspinal mass or hematoma. Central canal detail is inherently limited. Facet joint degenerative changes are present. There is le ft foraminal stenosis at C3-4 and mild on the left at C4-5. There is significant left facet degenerat desiree change at this level. Prominent posterior endplate spurring at C5-6 causes central spinal stenosi s to 6- 7 mm. Cord flattening is very likely present. Bilateral foraminal stenosis is present. Endpla te spurring at C6-7 causes spinal stenosis to 8 mm. There is mild bilateral foraminal encroachment. IMPRESSION: No fracture or pathologic bone process. Advanced degenerative change at C5-6 and C6-7 causes significant spinal stenosis. Multilevel bony foraminal stenosis. Patient has multiple sites that could be etiologies for left extremity radiculopathy.
--- NOTE | 2017-10-13 10:08 | RAD REPORT ---
EXAM DESCRIPTION: CT - Thoracic Spine W/o Cont - 10/13/2017 9:02 am CLINICAL HISTORY: Back pain, radiculopathy COMPARISON: None. TECHNIQUE: Axial 3 mm thick images of the thoracic spine were obtained with sagittal and coronal rec onstruction images generated and reviewed. All CT scans are performed using dose optimization technique as appropriate and may include automated exposure control or mA/KV adjustment according to patient size. FINDINGS: Thoracic body height and alignment are normal. Patient has disc space narrowing throughout the thoracic spine. Multiple levels show anterior endplate spurs. No fracture or pathologic bone pro cess. No paraspinal mass or hematoma. Central canal detail is inherently limited regarding thoracic disc herniation assessment. Posterior e ndplate spurring at T7-8 causes a mild encroachment into the central canal. This is not felt to be si gnificant degree of spinal stenosis. Slightly less prominent endplate spurring changes at T8-9 and T9 -10. Again, significant cord encroachment or spinal stenosis not suspected. Incidental note of T9 hem angioma. IMPRESSION: Thoracic spine degenerative changes are present as detailed. No significant degree of ce ntral spinal stenosis. Central canal detail is inherently limited.
[2017-10-13] MEDS ORDERED: DOCUSATE NA 100 MG CAP PO PRN (11:20)
--- NOTE | 2017-10-13 11:23 | P.PN ---
Subjective Date of Service: 10/13/17 Primary Care Provider: Dr. Parikh; Neurology-Dr. Mercado Chief Complaint: cele chorea Subjective: Other (Patient doing better this morning with medication started last night.) Physical Examination - Vital Signs Temperature: 97.0 F Blood Pressure: 172/77 Pulse: 60 Respirations: 18 Pulse Ox (%): 97 - Physical Exam General: Alert, In no apparent distress, Cooperative HEENT: Atraumatic Neck: Supple Respiratory: Clear to auscultation bilaterally, Normal air movement Cardiovascular: Normal pulses, Regular rate/rhythm Gastrointestinal: Normal bowel sounds, Soft and benign, Non-distended Musculoskeletal: No tenderness, No warmth Integumentary: No erythema, No warmth, No cyanosis Neurological: Other (No significant abnormal movement to the left upper extremity. Patient reports some tingling and numbness to) - Studies Laboratory Data (last 24 hrs) 10/12/17 18:59: PT 11.8, INR 1.00 10/12/17 18:59: WBC 6.3, Hgb 14.0, Hct 41.0, Plt Count 235 10/12/17 18:59: Sodium 142, Potassium 3.9, BUN 18, Creatinine 0.90, Glucose 115 H, Magnesium 2.5 H, Total Bilirubin 0.3, AST 28, ALT 35, Alkaline Phosphatase 94 Medications List Reviewed: Yes Assessment & Plan - Problems (Diagnosis) (1) Left upper extremity numbness Current Visit: Yes Status: Acute Plan: This appears chronic. CT scan shows advanced degenerative changes to the C5-C6 and C6-C7 area causing significant spinal stenosis. Multi level foraminal stenosis noted. Will discuss with Neurology. Patient also being evaluated for possible chorea. Patient may benefit with pain management as an outpatient. Patient in process of moving to a town near [place], [place]. (2) Chorea Onset Date: 10/13/17 Current Visit: Yes Status: Acute Plan: Will order EEG. Await neurology recommendation. The patient did well with Haldol given last night. Patient with dementia as well. Will continue with her medication. CT of the head shows likely old infarct in the past. Possible discharge later today if okay with neurology. Patient will be moving to [facility]. (3) Dementia Onset Date: 10/13/17 Current Visit: Yes Status: Chronic Plan: Will continue with her medication. Qualifiers: Dementia type: unspecified type Dementia behavioral disturbance: without behavioral disturbance Qualified Code(s): F03.90 - Unspecified dementia without behavioral disturbance (4) Diabetes mellitus Onset Date: 10/13/17 Current Visit: Yes Status: Chronic Plan: Diabetes well controlled. Will continue Accu-Cheks. Will review home medication. Qualifiers: Diabetes mellitus type: type 2 Diabetes mellitus chcf insulin use: with immigration consultant use Diabetes mellitus complication status: with unspecified complications Qualified Code(s): E11.8 - Type 2 diabetes mellitus with unspecified complications; Z79.4 - FDC (current) use of insulin (5) Hypertension Current Visit: Yes Status: Chronic Plan: Will continue with home medication Qualifiers: Hypertension type: essential hypertension Qualified Code(s): I10 - Essential (primary) hypertension (6) Hyperlipidemia Current Visit: Yes Status: Chronic Plan: Will continue with medication. Qualifiers: Hyperlipidemia type: unspecified Qualified Code(s): E78.5 - Hyperlipidemia , unspecified (7) Spinal stenosis Current Visit: Yes Status: Chronic Plan: Patient may benefit with pain management as an outpatient. Will discuss with Neurology. Qualifiers: Spinal region: cervical Qualified Code(s): M48.02 - Spinal stenosis, cervical region (8) Hemangioma Current Visit: Yes Status: Acute Plan: Patient with T9 vertebral hemangioma. This can be monitored as an outpatient. (9) History of CVA (cerebrovascular accident) Current Visit: Yes Status: Chronic Plan: CT head shows possible old infarct. Will discuss with Neurology. (10) History of pacemaker Current Visit: Yes Status: Chronic Plan: Patient with pacemaker with history of sick sinus syndrome. Continue medication. Discharge Plan: Home Plan to discharge in: 24 Hours Time Spent Managing Pts Care (In Minutes): 55
[2017-10-13] MEDS ORDERED: VERAPAMIL HCL 180 MG PO SCH (14:00)
--- NOTE | 2017-10-13 14:16 | P.DS ---
Admission Date: 10/12/17 Discharge Date: 10/15/17 Primary Care Provider: Dr. Parikh; Neurology-Dr. Mercado Disposition: ROUTINE DISCHARGE Discharge Condition: GOOD Reason for Admission: cele chorea Consultations: Neurology: Dr. Mercado Procedures: Echocardiogram: Ejection fraction 69%. LEFT VENTRICULAR WALL MOTION: NORMAL DOPPLER/COLOR FLOW: MILD TRICUSPID REGURGITATION. NORMAL RIGHT VENTRICULAR SYSTOLIC PRESSURE. NO AORTIC STENOSIS OR AORTIC REGURGITATION. COMMENTS: NORMAL LEFT VENTRICULAR EJECTION FRACTION. PACEMAKER CATHETER NOTED IN RIGHT ATRIUM. AORTIC SCLEROSIS WITH NO AORTIC STENOSIS OR AORTIC REGURGITATION. MILD TRICUSPID REGURGITATION. EEG: Within normal range. CT head: FINDINGS: An intracranial bleed is not seen . The ventricles are normal in caliber. No extra-axial fluid collection is noted. A 5 millimeter low-density areas present within the right internal capsule. Fluid within the sinuses/ mastoids is not seen. IMPRESSION: A 5 millimeter low-density area within the right internal capsule consistent with an infarct. The age is indeterminate. CT spine-C spine: FINDINGS: Cervical bodies are normal in height. No acute fracture changes identifiable. Slight anterolisthesis of C3 on C4. There is a mild retrolisthesis of C5 and C6 relative to the C4 and C7 bodies. Significant C5-6 and C6-7 disc space narrowing and endplate spurring changes are present. No pathologic bone process. C7-T1 disc space narrowing also present. No paraspinal mass or hematoma. Central canal detail is inherently limited. Facet joint degenerative changes are present. There is left foraminal stenosis at C3-4 and mild on the left at C4 -5. There is significant left facet degenerative change at this level. Prominent posterior endplate spurring at C5-6 causes central spinal stenosis to 6- 7 mm. Cord flattening is very likely present. Bilateral foraminal stenosis is present. Endplate spurring at C6-7 causes spinal stenosis to 8 mm. There is mild bilateral foraminal encroachment. IMPRESSION: No fracture or pathologic bone process. Advanced degenerative change at C5-6 and C6-7 causes significant spinal stenosis. Multilevel bony foraminal stenosis. Patient has multiple sites that could be etiologies for left extremity radiculopathy. CT spine-T spine: FINDINGS: Thoracic body height and alignment are normal. Patient has disc space narrowing throughout the thoracic spine. Multiple levels show anterior endplate spurs. No fracture or pathologic bone process. No paraspinal mass or hematoma. Central canal detail is inherently limited regarding thoracic disc herniation assessment. Posterior endplate spurring at T7-8 causes a mild encroachment into the central canal. This is not felt to be significant degree of spinal stenosis. Slightly less prominent endplate spurring changes at T8-9 and T9-10. Again, significant cord encroachment or spinal stenosis not suspected. Incidental note of T9 hemangioma. IMPRESSION: Thoracic spine degenerative changes are present as detailed. No significant degree of central spinal stenosis. Central canal detail is inherently limited. - Problems (1) Left upper extremity numbness Current Visit: Yes Status: Acute (2) Chorea Onset Date: 10/13/17 Current Visit: Yes Status: Acute (3) Dementia Onset Date: 10/13/17 Current Visit: Yes Status: Chronic Qualifiers: Dementia type: unspecified type Dementia behavioral disturbance: without behavioral disturbance Qualified Code(s): F03.90 - Unspecified dementia without behavioral disturbance (4) Diabetes mellitus Onset Date: 10/13/17 Current Visit: Yes Status: Chronic Qualifiers: Diabetes mellitus type: type 2 Diabetes mellitus senior living insulin use: with exterminator use Diabetes mellitus complication status: with unspecified complications Qualified Code(s): E11.8 - Type 2 diabetes mellitus with unspecified complications; Z79.4 - senior living (current) use of insulin (5) Hypertension Current Visit: Yes Status: Chronic Qualifiers: Hypertension type: essential hypertension Qualified Code(s): I10 - Essential (primary) hypertension (6) Hyperlipidemia Current Visit: Yes Status: Chronic Qualifiers: Hyperlipidemia type: unspecified Qualified Code(s): E78.5 - Hyperlipidemia , unspecified (7) Spinal stenosis Current Visit: Yes Status: Chronic Qualifiers: Spinal region: cervical Qualified Code(s): M48.02 - Spinal stenosis, cervical region (8) Hemangioma Current Visit: Yes Status: Acute (9) History of CVA (cerebrovascular accident) Current Visit: Yes Status: Chronic (10) History of pacemaker Current Visit: Yes Status: Chronic (11) CVA (cerebral vascular accident) Current Visit: Yes Status: Acute Brief History of Present Illness: 77-year-old female with history of hypertension, diabetes, hyperlipidemia and dementia. Patient presented emergency room with worsening left upper extremity involuntary movement with some numbness noted. Patient seen and evaluated by neurology as an outpatient. Patient was told to come to the ER for further evaluation. Hospital Course: During the course of her stay patient was evaluated for her involuntary left upper extremity movement. Patient has history of dementia. CT scan revealed 5 mm low density area within the right internal capsule consistent with infarct. Age undetermined. EEG unremarkable. Patient evaluated by neurology. 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 The patient was monitored and worked with physical therapy. Medications were adjusted. Patient previously taking aspirin. This was switched to Plavix. Patient placed on Zetia as she is intolerant to statin medication. Patient was also started on Haldol. Medication adjusted during the course of her stay. At discharge she will continue with Plavix 75 mg 1 pill once daily, Zetia 10 mg 1 pill once daily , and Haldol 1 mg 1 pill twice daily. If her problem persists more than 10-14 days, Haldol can be transitioned over to tetrabenazine as this will decrease risk of tardive dyskinesia. Patient plans to move to [place], [place]. Recommendation is to establish care with Neurology there and follow up within 1- 2 weeks to further address. Patient reported some numbness to the left upper extremity. CT scan of spine showed advanced degenerative changes to the C5, 6, 7 causing significant spinal stenosis. Multilevel bony foraminal stenosis also noted. Thoracic spine showed degenerative changes as well. Incidental finding of T9 hemangioma noted. Patient may require pain management referral is an outpatient. Patient will continue with Cymbalta 20 mg daily patient also taking Etolodac 400 mg one pill twice daily. Etolodac will need to be taken as needed. Lab will need to be monitored since she is taking Etolodac. Recommend to monitor renal function. Patient with dementia. Patient will continue with her medication-Namenda 5 mg 1 pill twice daily. Patient with diabetes. A1c very well controlled at 5.7. Patient will continue with her current medication-Glucophage 500 mg 1 pill twice daily. Recommendation is to maintain blood sugar less than 140 fasting and less than 200 after meals. Further adjustment can be done by her PCP. Patient has hyperlipidemia. Patient will continue with her medication-Zetia 10 mg daily. Patient has pacemaker in place due to history of sick sinus syndrome. Patient also has hypertension. Patient continue with verapamil ER 180 mg 1 pill three times a day. Recommendation is to maintain blood pressures less 150/80. Further adjustment can be done by her PCP. Patient will need to establish care with cardiology to further monitor after she moves to [place], [place]. Vital Signs/Physical Exam: Temp Pulse Resp BP Pulse Ox 97.0 F 60 18 172/77 H 97 10/13/17 11:27 10/13/17 11:27 10/13/17 11:27 10/13/17 11:27 10/13/17 11:27 General: Alert, In no apparent distress, Cooperative HEENT: Atraumatic Neck: Supple Respiratory: Clear to auscultation bilaterally, Normal air movement Cardiovascular: Normal pulses, Regular rate/rhythm Gastrointestinal: Normal bowel sounds, Soft and benign, Non-distended, No masses , No rebound, No guarding Musculoskeletal: No erythema, No tenderness, No warmth Integumentary: No erythema, No warmth, No cyanosis Neurological: Normal speech, Normal strength at 5/5 x4 extr, Normal tone, Other (Slight abnormality tube movement to the left upper extremity.), Dementia Laboratory Data at Discharge: WBC 6.1 K/uL (4.3-10.9) 10/13/17 04:41 Hgb 13.1 g/dL (12.0-15.0) 10/13/17 04:41 Hct 37.8 % (36.0-45.0) 10/13/17 04:41 Plt Count 200 K/uL (152-406) 10/13/17 04:41 PT 11.8 SECONDS (9.5-12.5) 10/12/17 18:59 INR 1.00 10/12/17 18:59 Sodium 144 mmol/L (136-145) 10/13/17 04:41 Potassium 3.9 mmol/L (3.5-5.1) 10/13/17 04:41 BUN 14 mg/dL (7-18) 10/13/17 04:41 Creatinine 0.80 mg/dL (0.55-1.3) 10/13/17 04:41 Glucose 102 mg/dL (74-106) 10/13/17 04:41 Magnesium 2.5 mg/dL (1.8-2.4) H 10/12/17 18:59 Total Bilirubin 0.3 mg/dL (0.2-1.0) 10/12/17 18:59 AST 28 U/L (15-37) 10/12/17 18:59 ALT 35 U/L (12-78) 10/12/17 18:59 Alkaline Phosphatase 94 U/L (45-117) 10/12/17 18:59 Triglycerides 164 mg/dL (<150) H 10/13/17 04:41 Cholesterol 163 mg/dL (<200) 10/13/17 04:41 HDL Cholesterol 34 mg/dL (40-60) L 10/13/17 04:41 Cholesterol/HDL Ratio 4.79 10/13/17 04:41 Home Medications: Verapamil HCl [Verapamil ER] 180 mg PO TID 08/02/14 Docusate Sodium [Stool Softener] 100 mg PO DAILY PRN 10/12/17 Duloxetine [Cymbalta *] 20 mg PO DAILY 10/12/17 Etodolac 400 mg PO BID 10/12/17 Ezetimibe [Zetia*] 10 mg PO DAILY 10/12/17 Memantine HCl 5 mg PO BID 10/12/17 Metformin HCl [Glucophage Xr] 500 mg PO BID 10/12/17 Clopidogrel Bisulfate [Plavix*] 75 mg PO DAILY #30 tablet 10/14/17 Haloperidol [Haldol] 1 mg PO BID #60 tablet 10/14/17 New Medications: Clopidogrel Bisulfate [Plavix*] 75 mg PO DAILY #30 tablet Haloperidol [Haldol] 1 mg PO BID #60 tablet Patient Discharge Instructions: 1. Patient plans to move to [place], [place] soon. She will need to establish care with a PCP there to follow up this hospitalization. Patient may follow up with her PCP within one week prior to moving to [place] to go over hospitalization. 2. Patient presented with acute on chronic involuntary left upper extremity movement. Patient has history of dementia. Patient given Haldol with good improvement. CT head showed a 5 mm low density area within the right internal capsule consistent with infarct. Age could not be determined. This likely related to subthalamic CVA. Patient not able to do MRI due to history of pacemaker placement. EEG unremarkable. Neurology was consulted. Medications have been adjusted. Neurology recommends to continue with Plavix 75 mg daily, Zetia 10 mg 1 pill daily, and Haldol 1 mg twice daily. If her abnormal limits continue Haldol may need to be transitioned to Tetrabenazine as this will have less risk for tardive dyskinesia. Recommendation to establish care with PCP and Neurology within one week in [place], [place] where she plans to move. 3. Patient reported some numbness to the left upper extremity. CT scan of spine showed advanced degenerative changes to the C5,C6,C7 causing significant spinal stenosis. Multilevel bony foraminal stenosis also noted. Thoracic spine showed degenerative changes as well. Incidental finding of T9 hemangioma noted. Patient may require pain management referral as an outpatient. Patient will continue with Cymbalta 20 mg daily patient also taking Etolodac 400 mg one pill twice daily. Etolodac will need to be taken as needed. Lab will need to be monitored since she is taking Etolodac. Recommend to monitor renal function. 4. Patient with dementia. Patient will continue with her medication-Namenda 5 mg 1 pill twice daily. 5. Patient with diabetes. A1c very well controlled at 5.7. Patient will continue with her current medication-Glucophage 500 mg 1 pill twice daily. Recommendation is to maintain blood sugar less than 140 fasting and less than 200 after meals. Further adjustment can be done by her PCP. 6. Patient has hyperlipidemia. Patient will continue with her medication -Zetia 10 mg daily. 7. Patient has pacemaker in place due to history of sick sinus syndrome. Patient also has hypertension. Patient continue with verapamil ER 180 mg 1 pill three times a day. Recommendation is to maintain blood pressures less 150/80. Further adjustment can be done by her PCP. Patient will need to establish care with cardiology to further monitor after she moves to [place], [place]. Diet: AHA Activity: Fall precautions Time spent managing pt's care (in minutes): 55
[2017-10-13] MEDS: VERAPAMIL SR 180 MG TAB PO SCH ×2 (17:37→21:21)
[2017-10-13] MEDS: MEMANTINE HCL 10 MG TABLET PO SCH (21:21)
[2017-10-13] MEDS: HALOPERIDOL 2 MG TAB PO SCH (21:23)
--- NOTE | 2017-10-13 23:46 | CON ---
Date of Consultation: 10/13/2017 Time: 2010 hours. Reason: Abnormal movement. History: This is a 77-year-old lady known to myself with history of depression, history of dementia, mild. She was in her usual state of health until about 3 weeks ago when family actually started not icing abnormal movement involving only the left side of her body. It is of moderate to large amplitu de and voluntary movement involving the left face, arm, and leg. It has a flinging component. It is slow and writhing consistent with hemichorea/hemiballismus. The problem did not improve and the fam jayce thinks it may have actually worsened somewhat yesterday. She developed dysarthria. They became concerned and brought her to the emergency department. I was contacted as I know the patient. CT sc an of the brain demonstrates a prior old ischemic lesion, right capsule. The patient again had an MR I as the pacemaker, had a CT cervical and thoracic spine as well, demonstrating spondylosis and steno sis, likely unrelated to current symptom complex. The patient denies any new medications. Glucose h as been well controlled. LDL is 96. She is on Zetia 10 mg chronically. 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 She is given some Haldol. It seemed to help so mewhat. Consultation was requested. Past Medical History: As alluded to, also with diabetes and hypertension. Allergies: MORPHINE, STATINS, SULFA, OXYCODONE. Social History: . Normally independent activities of daily living. Family History: Negative for movement disorders. Routine Medications: Cymbalta 20, aspirin 81, metformin, Zetia, etodolac, verapamil, and Namenda. Review of Systems: General: She has been well. Eyes: Negative. Ears, Nose, Throat: Negative. Cardiovascular: Hypertension. Pulmonary: Negative. GI: Some loose bowels this morning. : Negative. Musculoskeletal: Arthralgias. Neurologic: As noted. Psychiatric: Depression. Endocrine: Diabetes. Physical Examination: Vital Signs: Temperature 97.2, pulse 71, blood pressure 186/96. General: Pleasant lady, lying in bed, in no distress. Awake, alert, oriented. HEENT: Pupils reactive. Ocular motion full. Velazquez full. She has intermittent left facial grimaci ng. Pupils reactive. Extremities: Reveal full strength. No cogwheeling. No bradykinesia. She has a fairly smooth chore iform movement involving the left upper and lower extremities, a little bit worse distally, and will occasionally have a larger amplitude proximal ballistic component. Sensation decreased symmetrically distally. Reflexes trace. Right toe downgoing, left toe neutral. Gait normal. Cerebellar exam de monstrates no ataxia given the abnormal movement proper. 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 Plan: The patient is on Zetia. She does not tolerate statin since the drug allergy. Problem is not clearly adequately controlled at present. Increase Haldol 1 mg twice daily. Check additional labs. Upgrade the aspirin to Plavix. Continue DVT prophylaxis as you are doing. The patient is going to be moving to a different city post discharge, so they do not have any treating physicians there at [facility]. We will need to get the episodes under better control than they are right now in order for h er to be safely discharged. Thank you for the consult. We will continue to follow. CRISTINA Voice ID: [id number] Report ID: [id number]
[2017-10-14] MEDS: NA CHLORIDE 0.9% 1,000 ML IV SCH ×3 (05:23→19:45)
[2017-10-14 05:40] LABS: Potassium 3.7 mmol/L (3.5-5.1); Thyroid Stimulating Hormone 3.4 uIU/mL (0.36-3.74)
[2017-10-14] MEDS ORDERED: POTASSIUM 25 MEQ EFFERV TAB PO ONE (06:00)
[2017-10-14] MEDS: INSULIN -REGULAR HUMAN 50 UNIT/0.5 ML ML SQ SCH ×4 (07:30→21:00)
--- NOTE | 2017-10-14 07:32 | EEG ---
CHART: [id number] TEST ID#: [id number] DATE OF STUDY: 10/14/2015 THE EEG WAS RECORDED PORTABLE IN THE PATIENTS ROOM ON A 17 CHANNEL MACHINE. ELECTRODES WERE APPLIED IN THE USUAL MANNER USING THE INTERNATIONAL 10-20 SYSTEM. THE WAKING BACKGROUND RHYTHM IN THIS RECORD CONSISTS OF VERY WELL DEVELOPED AND WELL ORGANIZED WAVES OF 9 HZ., MAXIMAL IN THE POSTERIOR HEAD REGIONS WHICH ATTENUATE NORMALLY WITH EYE OPENING. IN DROWSINESS THE BACKGROUND DROPS TO 8 HZ. SEVERAL EPISODES OF BODY MOVEMENT ARE NOT ASSOCIATED WITH ANY CHANGES IN THE ONGOING EEG. THERE ARE NO FOCAL OR LATERALIZING FEATURES. NO EPILEPTIFORM ACTIVITY APPEARS. SLEEP DID NOT OCCUR. HYPERVENTILATION WAS NOT PERFORMED. PHOTIC STIMULATION PRODUCED GOOD DRIVING BILATERALLY. IMPRESSION: NORMAL EEG FOR THE AGE OF THE PATIENT IN WAKE AND DROWSINESS.
[2017-10-14] MEDS: MEMANTINE HCL 10 MG TABLET PO SCH ×2 (10:30→21:30)
[2017-10-14] MEDS: CLOPIDOGREL 75 MG TABLET PO SCH (10:30)
[2017-10-14] MEDS: DULOXETINE 20 MG CAP PO SCH (10:30)
[2017-10-14] MEDS: VERAPAMIL SR 180 MG TAB PO SCH ×3 (10:31→21:32)
[2017-10-14] MEDS: EZETIMIBE 10 MG TAB PO SCH (10:32)
[2017-10-14] MEDS: ENOXAPARIN 40 MG/0.4 ML SQ SCH (10:33)
[2017-10-14] MEDS: HALOPERIDOL 2 MG TAB PO SCH ×2 (10:33→21:12)
--- NOTE | 2017-10-14 12:08 | ECHO ---
HEIGHT: 5 ft 9 in WEIGHT: 208 lb 1.6 oz DATE OF STUDY: 10/14/[address]: 2-DIMENSIONAL: YES M.MODE: YES DOPPLER: YES COLOR FLOW: YES TDS: YES PORTABLE: NO DEFINITY: NO BUBBLE STUDY: NO DIAGNOSIS: CEREBRAL VASCULAR ACCIDENT CARDIAC HISTORY: CATHERIZATION: YES SURGERY: NO PROSTHETIC VALVE: NO PACEMAKER: YES MEASUREMENTS (cm) DIASTOLIC (NORMALS) SYSTOLIC (NORMALS) IVSd 1.0 (0.6-1.2) LA Diam 3.6 (1.9-4.0) LVEF 69% LVIDd 3.6 (3.5-5.7) LVIDs 2.2 (2.0-3.5) %FS 38% LVPWd 1.0 (0.6-1.2) Ao Diam 2.5 (2.0-3.7) 2 DIMENSIONAL ASSESSMENT: RIGHT ATRIUM: PACEMAKER CATHETER LEFT ATRIUM: NORMAL RIGHT VENTRICLE: NORMAL LEFT VENTRICLE: NORMAL TRICUSPID VALVE: NORMAL MITRAL VALVE: NORMAL PULMONIC VALVE: NORMAL AORTIC VALVE: SCLEROSIS PERICARDIAL EFFUSION: NONE AORTIC ROOT: NORMAL LEFT VENTRICULAR WALL MOTION: NORMAL DOPPLER/COLOR FLOW: MILD TRICUSPID REGURGITATION. NORMAL RIGHT VENTRICULAR SYSTOLIC PRESSURE. NO AORTIC STENOSIS OR AORTIC REGURGITATION. COMMENTS: NORMAL LEFT VENTRICULAR EJECTION FRACTION. PACEMAKER CATHETER NOTED IN RIGHT ATRIUM. AORTIC SCLEROSIS WITH NO AORTIC STENOSIS OR AORTIC REGURGITATION. MILD TRICUSPID REGURGITATION. TECHNOLOGIST: NEERAJ ELLISON
--- NOTE | 2017-10-14 14:13 | P.PN ---
Subjective Date of Service: 10/14/17 Primary Care Provider: Dr. Parikh; Neurology-Dr. Mercado Chief Complaint: gerardo chorea Subjective: Improving Physical Examination - Vital Signs Temperature: 97.1 F Blood Pressure: 149/70 Pulse: 76 Respirations: 18 Pulse Ox (%): 98 - Physical Exam General: Alert, In no apparent distress, Cooperative HEENT: Atraumatic Neck: Supple Respiratory: Clear to auscultation bilaterally, Normal air movement Cardiovascular: Normal pulses, Regular rate/rhythm Gastrointestinal: Normal bowel sounds, Soft and benign, Non-distended, No masses , No rebound, No guarding Musculoskeletal: No tenderness, No warmth Integumentary: No erythema, No warmth, No cyanosis Neurological: Normal speech, Normal strength at 5/5 x4 extr, Normal tone, Other (Some involuntary movement of left upper extremity) - Studies Medications List Reviewed: Yes Assessment & Plan - Problems (Diagnosis) (1) Left upper extremity numbness Current Visit: Yes Status: Acute Plan: This appears chronic. CT scan shows advanced degenerative changes to the C5-C6 and C6-C7 area causing significant spinal stenosis. Multi level foraminal stenosis noted. Patient may require pain management evaluation as an outpatient. (2) Chorea Onset Date: 10/13/17 Current Visit: Yes Status: Acute Plan: Gerardo [place] and hemiballismus noted. Likely from subthalamic infarct. Age unknown. Neurology has discontinued aspirin and change to Plavix. Haldol adjusted yesterday. Anticipate discharge today if okay with neurology. Patient will be moving to [facility]. (3) Dementia Onset Date: 10/13/17 Current Visit: Yes Status: Chronic Plan: Will continue with her medication. Qualifiers: Dementia type: unspecified type Dementia behavioral disturbance: without behavioral disturbance Qualified Code(s): F03.90 - Unspecified dementia without behavioral disturbance (4) Diabetes mellitus Onset Date: 10/13/17 Current Visit: Yes Status: Chronic Plan: Diabetes well controlled. Will continue Accu-Cheks. Will review home medication. Qualifiers: Diabetes mellitus type: type 2 Diabetes mellitus usp insulin use: with computer terminal operator use Diabetes mellitus complication status: with unspecified complications Qualified Code(s): E11.8 - Type 2 diabetes mellitus with unspecified complications; Z79.4 - halfway (current) use of insulin (5) Hypertension Current Visit: Yes Status: Chronic Plan: Will continue with home medication Qualifiers: Hypertension type: essential hypertension Qualified Code(s): I10 - Essential (primary) hypertension (6) Hyperlipidemia Current Visit: Yes Status: Chronic Plan: Will continue with medication. Patient on Zetia. Patient cannot tolerate statin medication. Qualifiers: Hyperlipidemia type: unspecified Qualified Code(s): E78.5 - Hyperlipidemia , unspecified (7) Spinal stenosis Current Visit: Yes Status: Chronic Plan: Patient may benefit with pain management as an outpatient. Qualifiers: Spinal region: cervical Qualified Code(s): M48.02 - Spinal stenosis, cervical region (8) Hemangioma Current Visit: Yes Status: Acute Plan: Patient with T9 vertebral hemangioma. This can be monitored as an outpatient. (9) History of CVA (cerebrovascular accident) Current Visit: Yes Status: Chronic Plan: CT head shows possible old infarct. Will discuss with Neurology. (10) History of pacemaker Current Visit: Yes Status: Chronic Plan: Patient with pacemaker with history of sick sinus syndrome. Continue medication. (11) CVA (cerebral vascular accident) Current Visit: Yes Status: Acute Plan: Continue as above. Patient now on Plavix, Zetia and DVT prophylaxis. Anticipate possible discharge today if okay with neurology. Discharge Plan: Home Plan to discharge in: 24 Hours Time Spent Managing Pts Care (In Minutes): 55
--- NOTE | 2017-10-14 22:29 | PN ---
Reason: Chorea. Interval History: The patient is stable. Chorea is better. The ballistic component is under contro l. She still has some minor distal chorea, on Haldol 1 mg twice daily, Plavix, labs reviewed, normal . I think she can safely be discharged to home in the morning. Stop the aspirin, add the Plavix, an d continue Haldol 1 mg twice daily that can be probably tapered off as an outpatient. If the problem persists for more than 10-14 days, we would favor transitioning her over to tetrabenazine as we will have the lower incidents of tardive dyskinesia moving forward. Physical Examination: General: On exam, she is awake, alert, oriented. Neuro: Rare left facial, hand, and foot choreiform movements. Strength full. No cortical extinctio n. Reflexes symmetric. Upgoing toe on the left. Impression: Subthalamic infarct. Plan: Discharged to home in a.m. Medication adjustments as alluded to in the history. DAPHNE/ANN Voice ID: [id number] Report ID: [id number]
[2017-10-15 01:21] VITALS: O2SAT 97
[2017-10-15] MEDS: NA CHLORIDE 0.9% 1,000 ML IV SCH ×2 (03:29→09:35)
[2017-10-15 05:39] LABS: Potassium 3.8 mmol/L (3.5-5.1)
[2017-10-15] MEDS ORDERED: POTASSIUM CL SA 10 MEQ TAB PO ONE (06:06)
[2017-10-15] MEDS: INSULIN -REGULAR HUMAN 50 UNIT/0.5 ML ML SQ SCH ×2 (07:30→11:30)
[2017-10-15] MEDS: EZETIMIBE 10 MG TAB PO SCH (09:00)
[2017-10-15 10:07] VITALS: TEMP 97
[2017-10-15] MEDS: VERAPAMIL SR 180 MG TAB PO SCH ×2 (10:17→13:11)
[2017-10-15] MEDS: HALOPERIDOL 2 MG TAB PO SCH (10:18)
[2017-10-15] MEDS: DULOXETINE 20 MG CAP PO SCH (10:18)
[2017-10-15] MEDS: MEMANTINE HCL 10 MG TABLET PO SCH (10:18)
[2017-10-15] MEDS: ENOXAPARIN 40 MG/0.4 ML SQ SCH (10:18)
[2017-10-15] MEDS: CLOPIDOGREL 75 MG TABLET PO SCH (10:19)
[2017-10-15 13:13] VITALS: BP 161/75
--- NOTE | 2017-10-15 13:39 | EKG ---
Test Date: 2017-10-15 Test Time: 10:43:45 Creative Manager: ZOEY MEASUREMENT RESULTS: Intervals: Rate: 63 IA: 80 QRSD: 162 QT: 490 QTc: 501 [place]: P: 7 IA: 80 QRS: -77 T: 82 INTERPRETIVE STATEMENTS: AV sequential or dual chamber electronic pacemaker Compared to ECG 01/09/2011 08:07:39 Ventricular-paced complex(es) or rhythm no longer present Electronically Signed On 10-15-17 13:39:18 CDT by Saran Gallagher
--- NOTE | 2017-10-15 13:39 | EKG ---
Test Date: 2017-10-15 Test Time: 10:44:09 Customer Account Technician: ZOEY MEASUREMENT RESULTS: Intervals: Rate: 50 RI: 296 QRSD: 148 QT: 518 QTc: 472 [place]: P: RI: 296 QRS: -77 T: 79 INTERPRETIVE STATEMENTS: Demand pacemaker, interpretation is based on intrinsic rhythm Sinus bradycardia with 1st degree AV block with paced complexes Left axis deviation Abnormal ECG Compared to ECG 10/15/2017 10:43:45 First degree AV block now present Left-axis deviation now present Electronically Signed On 10-15-17 13:39:14 CDT by Saran Gallagher
--- NOTE | 2017-10-15 15:45 | CON ---
Identification: A 77-year-old woman. Reason For Consult: Evaluate pacemaker. History Of Present Illness: Ms. Melton has had a pacemaker since 1979. She is on her 4th or 5th pacema ker at this point. Dr. Hillman usually follows her. Her pacemaker is a [employer] device. The last 1 implanted about 3-5 years ago and the interrogation shows that everything is working fine. Battery life is at least another 3-5 years. All leads have normal pacing thresholds, sensing thresholds, im pedances. The telemetry strip would look like there is pacing without capture, but it is actually fu nction of the pacemaker programming that does that. It is a triggering. It is an unusual program, n ot many pacemakers have it, but there are not any malfunctions. The patient is completely asymptomat ic, not having syncope, presyncope, dizzy spells, palpitations. The pacemaker does not indicate that she has tachycardic spells or AFib. Physical Examination: Vital Signs: Blood pressure is 142/75, pulse 65, temperature 97. Neck: Carotids, no bruit. Lungs: Clear. Heart: Within normal limits. Extremities: Normal distal pulses. Trace edema. Diagnostic Data: An echocardiogram was done on October 14, which reveals normal ejection fraction. Pacemaker catheter in right atrium, left ventricular diastolic function may be a little abnormal. Th ere is aortic sclerosis without aortic stenosis or regurgitation. There is mild tricuspid regurgitat ion. The patient was hospitalized on the because of neurological symptoms. She has been seen by Dr. Kwabena jorgensen. Everybody seems ready to discharge her home. She has a history of dementia, diabetes. 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 Impression: The patient's pacemaker seems to be working fine. She will be allowed to go home. [place] the [place] and she will take records of this hospitalization including the echo, this dictation, and the pacemaker report with her. JADEN/ANN Voice ID: [id number] Report ID: [id number]
== END 2017-10-15 14:56 | disposition home or self-care (01) | DRG 66 ==
LOC: ER 18:31 → ERHOLD 20:52 → 2ND 21:01
PROVIDERS: ADMIT Internal Medicine; ATTEND Family Medicine
DX: I63.9 Cerebral infarction, unspecified (principal); G25.5 Other chorea; I08.2 Rheumatic disorders of both aortic and tricuspid valves; M48.02 Spinal stenosis, cervical region; F03.90 Unspecified dementia, unspecified severity, without behavioral disturbance, psychotic disturbance, mood disturbance, and anxiety; E11.8 Type 2 diabetes mellitus with unspecified complications; I10 Essential (primary) hypertension; E78.5 Hyperlipidemia, unspecified; D18.09 Hemangioma of other sites; Z95.0 Presence of cardiac pacemaker; Z79.82 Long term (current) use of aspirin; Z79.84 Long term (current) use of oral hypoglycemic drugs; Z88.5 Allergy status to narcotic agent; Z88.2 Allergy status to sulfonamides; Z88.8 Allergy status to other drugs, medicaments and biological substances; R29.702 NIHSS score 2
CPT/HCPCS: 36415; 70450; 71045; 72125; 72128; 80048; 80061; 80076; 81003; 82550; 82607; 82962; 83036; 83735; 83880; 84443; 85025; 85610; 85652; 86038; 93005; 93280; 93306; 95816; 96374; 97163; 99285; J1630; J1650; J7030